=== PATIENT | male | born 1995 | race American Indian/Alaskan Native ===

== ENCOUNTER 2017-12-30 03:21 | Emergency (ER) | payer SELFPAY ==
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
[2017-12-30 07:45] VITALS: BP 111/63
== END 2017-12-30 07:36 | disposition home or self-care (01) ==
LOC: ED 03:21
DX: S00.01XA Abrasion of scalp, initial encounter (principal); Z91.030 Bee allergy status; Z72.0 Tobacco use; W22.8XXA Striking against or struck by other objects, initial encounter; Y93.89 Activity, other specified; Y92.89 Other specified places as the place of occurrence of the external cause; Y99.8 Other external cause status
CPT/HCPCS: 70450; 99283